=== PATIENT | female | born 1970 | race Asian ===

== ENCOUNTER 2019-01-18 09:29 | Day surgery (SDC) | payer OTHER ==
[~2019-01-18 09:29] MED LIST: CEFAZOLIN SODIUM IN 0.9 % NACL 2 GM/100 ML BAG IV ONE
[2019-01-18] MEDS ORDERED: DEXAMETHASONE 4 MG/ML VIAL IVP ONE (09:30)
[2019-01-18] MEDS ORDERED: PROPOFOL 200 MG/20 ML VIAL IVP ONE (09:30)
[2019-01-18] MEDS ORDERED: MIDAZOLAM 2 MG/2 ML VIAL IVP ONE (09:30)
[2019-01-18] MEDS ORDERED: KETOROLAC 30 MG/ML VIAL IVP ONE (09:30)
[2019-01-18] MEDS ORDERED: LACTATED RINGERS 1,000 ML IV ONE (09:34)
[2019-01-18] MEDS ORDERED: BUPIVACAINE 0.25% PF 30 ML VIAL ONE (09:50)
[2019-01-18 09:54] LABS: HCG UR QUAL NEGATIVE
--- NOTE | 2019-01-18 10:16 | ANESTHESIA ---
Pre-Anesthesia VS, & Labs - Diagnosis right thumb trigger finger - Procedure right thumb trigger finger release Vital Signs: Temp Pulse Resp BP Pulse Ox 36.1 C L 85 12 137/78 H 98 01/18/19 09:39 01/18/19 09:39 01/18/19 09:39 01/18/19 09:39 01/18/19 09:39 Height 5 ft Weight (kg) 72.3 kg - NPO >8 hours - Is Patient ?: No Home Medications and Allergies Home Medications: Ambulatory Orders Ibuprofen [Motrin] 600 mg PO Q6H PRN 01/16/19 Ibuprofen [Motrin] 600 mg PO Q6H PRN 01/16/19 Allergies/Adverse Reactions: Allergies Allergy/AdvReac Type Severity Reaction Status Date / Time ceftriaxone Allergy Hives Verified 01/16/19 14:57 Anes History & Medical History - Anesthetic History Anesthesia Complications: reports: No previous complications - Medical History Cardiovascular: reports: None Pulmonary: reports: None Gastrointestinal: reports: None Urinary: reports: None Neuro: reports: None Musculoskeletal: reports: Other Endocrine/Autoimmune: reports: None Blood Disorders: reports: None Skin: reports: None Smoking Status: Never smoker Psychosocial: reports: No issues indicated - Surgical History General: Appendectomy Gynecologic: section, Other Exam General: Alert, Oriented x3, Cooperative, No acute distress Dental: WNL Mouth Openin Fingerbreadth Neck Mobility: Normal Mallampati classification: II Thyromental Distance: greater than 6 cm Respiratory: Lungs clear, Normal breath sounds, No respiratory distress, No accessory muscle use Cardiovascular: Regular rate, Normal S1, Normal S2, No murmurs Mental/Cognitive Status: Alert/Oriented X3, Normal for patient Plan Anesthesia Type: General Consent for Procedure(s) Verified and Reviewed: Yes Code Status: Attempt Resuscitation ASA classification: 1-Healthy patient Is this case an emergency?: No
[2019-01-18] MEDS ORDERED: BUPIVACAINE 0.25% PF 30 ML VIAL SUBQ ONE ×2 (10:43)
[2019-01-18] MEDS ORDERED: ONDANSETRON 4 MG/2 ML VIAL IVP PRN (11:03)
[2019-01-18] MEDS ORDERED: oxyCODONE 5 MG TABLET PO PRN (11:03)
--- NOTE | 2019-01-18 11:09 | OPERATIVE REPORT ---
Operative Report - Other Other Information/Narrative: Date of Surgery: 18 January 2019 Pre-Op Diagnosis: Right trigger thumb Procedure: Right trigger thumb release Postop Diagnosis: Same Primary Surgeon: Talat Madrid Secondary Surgeon: Wellington Barrios Complications: None Tourniquet Time: 13 minutes EBL: 1 cc Postoperative Protocol: Active motion as tolerated. No firm gripping for 2 weeks. Indication For Surgery: 48-year-old female with a couple months of trigger thumb which is very painful and made it difficult for her to extend her finger. We discussed treatment options to include injections, watchful waiting, and surgery. She desired a permanent solution and surgery was selected. We specifically discussed risk to the crossing nerves and blood vessels. The risks, benefits, and alternatives were discussed. Risks include pain, bleeding, infection, damage to nearby structures, numbness, lack of symptom relief, need for further surgery, DVT, PE, stroke, and . Written consent was obtained. The patient was met in the preoperative holding on the day of the procedure. Operative extremity was signed. Consent was verified. They desire to proceed. They were brought to the operating room and placed in the supine position. A well-padded forearm tourniquet was applied. They were prepped and draped in the standard fashion. A surgical timeout was held will be confirmed the patient procedure, identity, allergies, antibiotics, images laterality, and finger. All were in agreement we proceeded. Once adequate anesthesia had been obtained an Esmarch was used to exsanguinate the limb and the tourniquet was elevated to 250 mmHg. A small transverse incision was made at the level of the A1 pully overlying the thumb flexor tendon. Blunt dissection was made with scissors down to the tendon sheath and the tissues were spread in line with the tendon and neurovascular structures. 3 blunt retractors were placed and the A1 judith was identified. It was cut sharply with a knife from the distal to the proximal edge. A complete release was confirmed with the use of an elevator. Synovitis and thickening of the tendons were seen underneath it. The thumb was then flexed and extended without any catching. The wound was irrigated copiously and closed with horizontal mattress sutures. A sterile dressing was applied. She was transferred to the recovery room in good condition.
[2019-01-18] MEDS: fentaNYL 100 MCG/2 ML VIAL ONE ×2 (11:26→11:32)
[2019-01-18] MEDS ORDERED: oxyCODONE 5 MG TABLET ONE (12:09)
[2019-01-18 12:46] VITALS: BP 116/75
== END 2019-01-18 09:30 | disposition home or self-care (01) ==
LOC: SDS 09:29
PROVIDERS: ATTEND Orthopaedic Surgery
PROC: 0LN70ZZ Release Right Hand Tendon, Open Approach (ICD-10-PCS; principal; 2019-01-18 11:45)
DX: M65.311 Trigger thumb, right thumb (principal)
CPT/HCPCS: 26055; 81025; A9270; J0690; J7120